=== PATIENT | female | born 1990 | race Caucasian/White ===

== ENCOUNTER 2018-04-02 17:41 | Emergency (ER) | payer BC ==
[~2018-04-02] VITALS: Ht 170.2 cm; Wt 113.6 kg
[2018-04-02 17:46] VITALS: Ht 170.2 cm; Wt 113.6 kg
[2018-04-02 19:02] LABS: BASOPHILS 0.3 % (0-2); EOSINOPHILS 5.8 % (0-7); HEMATOCRIT 40.9 % (36.0-48.0); HEMOGLOBIN 14.1 g/dL (12-16); IMMATURE GRANULOCYTES 0.2 % (0-5); LYMPHOCYTES 29.7 % (15-50); MCH 29.3 pg (26.0-34.0); MCHC 34.5 g/dL (31.0-37.0); MEAN PLATELET VOLUME 9.1 fL (7.4-10.4); MONOCYTES 5.4 % (2-11); NEUTROPHILS 58.6 % (40-80); PLATELET COUNT 304 10x3/uL (130-400); RBC 4.81 10x6/uL (4.00-5.40); RDW 13.9 % (11.5-14.5); WBC 10.8 10x3/uL (4.8-10.8)
[2018-04-02 19:32] LABS: ALBUMIN 3.4 g/dL (3.4-5.0); ANION GAP 9.6 mmol/L (8-16); BILIRUBIN - TOTAL 0.21 mg/dL (0.2-1.3); CALCIUM 8.8 mg/dL (8.5-10.1); CREATININE - SERUM 1.1 mg/dL (0.6-1.3); POTASSIUM - SERUM 3.6 mmol/L (3.5-5.1)
[2018-04-02] MEDS ORDERED: XARELTO15 MG PO (20:19)
[2018-04-02 21:03] VITALS: BP 131/87
== END 2018-04-02 21:03 | disposition home or self-care (01) ==
LOC: D.ER 17:41
PROVIDERS: Family Medicine
DX: I82.432 Acute embolism and thrombosis of left popliteal vein (principal)